=== PATIENT | female | born 1975 ===

== ENCOUNTER 2023-03-31 06:14 | Day surgery (SDC) | payer OTHER ==
[~2023-03-31] VITALS: Ht 167.6 cm; Wt 60.7 kg
[~2023-03-31 06:14] MED LIST: Lactated Ringer's 1,000 ML IV ONE
[2023-03-31] MEDS ORDERED: Lactated Ringer's 1,000 ML IV ONE (07:08)
[2023-03-31] MEDS ORDERED: Oxymetazoline 0.05% Nasal Relief Spray 15mL BTL ONE (07:08)
[2023-03-31] MEDS ORDERED: propofoL 20 ML IV ONE (07:21)
[2023-03-31] MEDS ORDERED: FentaNYL Citrate 50 MCG/ML 2 ML Injection ONE (07:22)
[2023-03-31] MEDS ORDERED: Dexamethasone Sod Phos 10 MG/ML 1ML VIAL ONE (07:38)
[2023-03-31] MEDS ORDERED: Ondansetron HCl 2 MG / ML 2ML Vial ONE (07:38)
--- NOTE | 2023-03-31 07:45 | NUR ---
03/31/23 0745 Parris Fitzpatrick SHOULDER ROLL, PILLOW UNDER KNEES, RIGHT ARM TUCKED, LEFT ARM SECURED ON PADDED ARM BOARDS.
[2023-03-31] MEDS ORDERED: Naloxone HCl 0.4MG / ML 1ML Vial ONE (07:55)
[2023-03-31 08:47] VITALS: BP 120/91
== END 2023-03-31 08:56 | disposition home or self-care (01) ==
LOC: ORSCSDS 06:14
PROVIDERS: Otolaryngology
PROC: 0CBPXZZ Excision of Tonsils, External Approach (ICD-10-PCS; principal; 2023-03-31 07:30)
DX: J35.01 Chronic tonsillitis (principal)
CPT/HCPCS: 88304; A9270; J1100; J2310; J2405; J2704; J3010; J7120